=== PATIENT | female | born 1940 | race Hispanic/Latino ===

== ENCOUNTER 2018-05-09 18:19 | Emergency (ER) | payer MEDICARE, OTHER ==
[~2018-05-09] VITALS: Ht 157.5 cm; Wt 66.7 kg
[2018-05-09 20:43] VITALS: BP 172/90
== END 2018-05-09 20:57 | disposition home or self-care (01) ==
LOC: ER 18:19
DX: S62.102D Fracture of unspecified carpal bone, left wrist, subsequent encounter for fracture with routine healing (principal); W19.XXXD Unspecified fall, subsequent encounter; I10 Essential (primary) hypertension
CPT/HCPCS: 99283